=== PATIENT | female | born 1975 | race Caucasian/White ===

== ENCOUNTER → 2018-05-24 09:51 | Outpatient (CLI) | payer BC, SELFPAY ==
--- NOTE | 2018-05-24 | DI.MRI.S_ITS ---
PROCEDURE: MR HIP LT W CON INDICATIONS: LEFT HIP PAIN TECHNIQUE: After the administration of 10 mL of dilute intra-articular Gadolinium contrast, coronal STIR of the bony pelvis; coronal and oblique axial T1 spin echo with fat saturation, axial T2 fast spin echo with fat saturation, sagittal T1 spin echo with and without fat saturation of the involved hip. COMPARISON: Outside Facility, [facility], MRI PELVIS W/O CONTRAST, 10/17/2009, 9:07. FINDINGS: Image quality: There is magnetic susceptibly artifact in the lower lumbar spine. Bones and joints: Bone marrow of the pelvic ring and proximal femurs demonstrate normal overall signal. No intraosseous lesions or fractures. No avascular necrosis of the femoral head. The visualized lower lumbar spine appears normally aligned. The ligamental, neck, and labral plicae appear normal where visualized. Tendons and ligaments: The gluteus medius and minimus tendons appear intact, without associated muscle atrophy. The adjacent proximal iliotibial band also appears intact. The iliopsoas tendon appears intact, without adjacent bursal fluid collections or evidence for impingement syndrome. The origin of the hamstring tendon is intact at the ischial tuberosity, as well as the associated sacrotuberous ligament. The straight and reflected heads of the rectus femoris muscle origin appear intact, as well as the conjoint tendon. The ligamentum teres appears intact where visualized. Labrum and cartilage: There is a small tear in the posteroinferior labrum. No paralabral cysts. Mild cartilage thinning also noted in the posteroinferior labrum. There is mild prominence of the femoral head neck junction. The alpha angle of the femur is increased at greater than 55 degrees. Coronal images also demonstrate suspected over- coverage of the femoral head by the acetabular rim. Soft tissues: Visualized muscles demonstrate normal bulk and internal signal. Quadratus femoris muscle demonstrates no internal edema to suggest ischiofemoral impingement. The proximal sciatic neurovascular bundle appears normal adjacent to the hamstring tendons. Bladder wall thickness is normal. Genitourinary structures and bowel loops appear grossly normal where visualized. There is a small amount of free fluid in the pelvis which is not well evaluated but likely physiologic. IMPRESSION: 1. Mild tearing of the posteroinferior labrum with mild associated cartilage thinning. 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 2. Although there is mild prominence of the femoral head neck junction with an increased alpha angle, there is no corresponding tearing of the anterosuperior labrum. Dictated by: Dev Pantoja M.D. on 05/24/2018 at 16:02 Approved by: Dev Pantoja M.D. on 05/24/2018 at 16:11
--- NOTE | 2018-05-24 | DI.RAD.S_ITS ---
PROCEDURE: FL HIP INJECTION MR/CT LT INDICATIONS: LEFT HIP PAIN TECHNIQUE: The indications, alternatives, benefits, risks, and complications of the procedure were explained to the patient. Written informed consent was obtained and placed in the chart. The hip was examined fluoroscopically with the legs fixed in slight internal rotation, and a site for needle placement chosen for entry into the hip joint from an anterior approach. Care was taken to locate the common femoral artery and vein beforehand. The skin was prepped and draped in a sterile fashion, and 1% Lidocaine infiltrated from skin down to joint capsule. A spinal needle was inserted into the joint, and a small amount of iodinated contrast media injected to confirm intra-articular placement of the needle tip. This was followed by approximately 10 mL dilute solution of a gadolinium containing MR contrast agent. The needle was removed and a dressing was applied. The patient was given postprocedural instructions and sent to the MR suite for imaging. FINDINGS: A single fluoroscopic spot image demonstrates intra-articular location of injected iodinated contrast. IMPRESSION: Successful fluoroscopically guided administration of dilute Gadolinium solution into the hip joint for MR arthrogram. Dictated by: Nathaniel Quintana M.D. on 05/24/2018 at 11:10 Approved by: Nathaniel Quintaan M.D. on 05/24/2018 at 11:10
== END ==
PROVIDERS: PCP Family Medicine; Visit Provider Physician Assistant Medical
DX: S73.192A Other sprain of left hip, initial encounter (principal); M25.552 Pain in left hip
CPT/HCPCS: 27093; 73722; 77002

== ENCOUNTER → 2018-07-04 09:49 | Outpatient (CLI) | payer BC, SELFPAY ==
--- NOTE | 2018-07-04 | DI.MRI.S_ITS ---
PROCEDURE: MR SHOULDER LT WO CON INDICATIONS: LEFT SHOULDER PAIN TECHNIQUE: Noncontrast oblique coronal T2 fast spin echo with fat saturation, oblique sagittal T1 spin echo and T2 fast spin echo with fat saturation, axial T1 spin echo and T2 fast spin echo with fat saturation through the shoulder. COMPARISON: None. FINDINGS: Image quality: Excellent. Rotator cuff: The supraspinatus, infraspinatus, and subscapularis tendons appear intact throughout. There is slight thickening of the supraspinatus tendon with increased internal signal compatible with mild tendinosis Sagittal images demonstrate no muscle atrophy. Bones and bursae: No bone marrow contusions or fractures. No acromioclavicular joint degeneration. The acromion demonstrates conventional anatomy, without an os acromiale. Small amount of fluid noted in the subacromial/subdeltoid bursa compatible with mild bursitis. Capsule and soft tissues: In the absence of intra-articular contrast, the labrum and glenohumeral ligaments appear intact. The long head of the biceps tendon demonstrates normal location and morphology. The rotator interval appears normal, without fibrosis. The coracohumeral ligament is normal in thickness. IMPRESSION: 1. Mild supraspinatus tendinitis. 2. Mild subacromial/subdeltoid bursitis. Dictated by: Deb Root MD, PhD on 07/04/2018 at 11:54 Approved by: Deb Root MD, PhD on 07/06/2018 at 10:45
== END ==
PROVIDERS: PCP Family Medicine; Visit Provider Family Medicine
DX: M75.52 Bursitis of left shoulder (principal); M25.512 Pain in left shoulder; M75.92 Shoulder lesion, unspecified, left shoulder
CPT/HCPCS: 73221

== ENCOUNTER → 2019-05-22 09:18 | Outpatient (CLI) | payer BC, SELFPAY ==
--- NOTE | 2019-05-22 | DI.US.S_ITS ---
PROCEDURE: US PELVIC COMPLETE INDICATIONS: LLQ ABD SWELLING, MASS TECHNIQUE: Real-time scanning was performed of the pelvic organs, with image documentation. Additional endovaginal scanning was necessary due to incomplete visualization of the adnexal and endometrial structures by transabdominal scanning. COMPARISON: [facility], US, PELVIC COMPLETE, 06/15/2017, 9:47. FINDINGS: Transabdominal scanning: Limited scanning through the kidneys shows no hydronephrosis. No pathologic free abdominal or pelvic fluid. Endovaginal scanning: Uterus: Surgically absent. Ovaries: Ovaries identified. 1.8 x 0.5 x 1.3 cm avascular complex subcutaneous mass is present corresponding to the palpable abnormality within the left lower quadrant. IMPRESSION: Avascular, complex subcutaneous soft tissue mass corresponding to the palpable abnormality. Findings are nonspecific and differential would include both benign and malignant etiology. Consider dermatology consultation. Dictated by: Carlos JOHNSON Interpreted: Cristóbal Ortiz MD on 05/22/2019 at 17:10 Approved by: Cristóbal Ortiz M.D. on 05/22/2019 at 17:53
== END ==
PROVIDERS: PCP Family Medicine; Visit Provider Specialist
DX: R19.04 Left lower quadrant abdominal swelling, mass and lump (principal)
CPT/HCPCS: 76830; 76856